=== PATIENT | female | born 1935 | race Caucasian/White ===

== ENCOUNTER 2017-04-11 17:43 | Emergency (ER) | payer OTHER, MEDICARE ==
[~2017-04-11] VITALS: Ht 152.4 cm; Wt 127.3 kg
--- NOTE | ~2017-04-11 | EKG ---
[place] [address] [facility] [place] [address] ELECTROCARDIOGRAM REPORT Name: KOKI GOLDBERG Room #: REG [facility] [id number] Admission: 04/11/17 Attend Phys: Discharge: Date of : 37 Report #: [id number] THIS REPORT FOR: //name// [facility] ED Test Date: 2017-04-11 Test Time: 18:43:09 Pat Name: KOKI GOLDBERG Department: Room: Gender: F Anchor Tacker: [id number] : 1935 Requested By: Bari Amador Order Number: [id number] MD: Mu Ozuna Measurements Intervals [place] Rate: 77 P: 7 OR: 262 QRS: 1 QRSD: 96 T: -1 QT: 373 QTc: 423 Interpretive Statements Sinus rhythm Atrial premature complexes Prolonged OR interval Low voltage, precordial leads Borderline T abnormalities, inferior leads Compared to ECG 12/17/2006 14:47:56 Atrial premature complex(es) now present Low QRS voltage now present T-wave abnormality now present Electronically Signed On 04-11-2017 21:23:30 CDT by Mu Ozuna [email or web address] <ELECTRONICALLY SIGNED> By: Mu Ozuna MD 04/11/172122 42 42 Mu Ozuna MD /EPI
[~2017-04-11 17:43] MED LIST: ACCUPRIL40 MG PO; ARIMIDEX PO; BYSTOLIC10 MG PO; CALCIUM 600 MG1 EAC3 PO; CELEXA 10 MG TA10 M1 PO; COLACE100 MG PO; HUMULIN 70100 UNIT/2 SQ; LASIX 40 MG TAB40 M1 PO; LIPITOR 20 MG T20 M1 PO; OXYCONTIN20 M1 PO; PERCOCET 5-3251 EACH PO; PRILOSEC 20 MG20 MG PO; SYNTHROID125 MCG PO; VERAPAMIL ER240 M1 PO; VITAMIN D 5050000 I1 PO; ZETIA10 MG PO
[2017-04-11] MEDS ORDERED: DULCOLAX5 MG PO (18:46)
[2017-04-11] MEDS ORDERED: AMLODIPINE BESY10 MG PO (18:46)
[2017-04-11 19:07] LABS: URINE BILIRUBIN NEGATIVE (Negative); URINE BLOOD NEGATIVE (Negative); URINE COLOR YELLOW; URINE GLUCOSE-RANDOM* NEGATIVE (Negative); URINE KETONES NEGATIVE (Negative); URINE NITRITE NEGATIVE (Negative); URINE PROTEIN (DIPSTICK) NEGATIVE (Negative); URINE UROBILINOGEN 0.2 E.U./dl (0.2-1.0)
[2017-04-11 19:29] LABS: HEMATOCRIT 29.1 % (37.0-47.0); HEMOGLOBIN 9.9 gm/dL (12.0-15.0); MCV 94.2 fL (80.0-100.0); PLATELET COUNT 221 thou/uL (150-400); RBC 3.09 mil/uL (4.20-5.00); RDW 12.2 % (10.5-14.5); WBC 10.9 thou/uL (4.0-11.0)
[2017-04-11 19:30] LABS: MANUAL DIFF YES
[2017-04-11] MEDS ORDERED: DOK PLUS TABLE1 EACH PO (19:33)
[2017-04-11] MEDS ORDERED: AF CAPSICUM 0.060 GM TOP (19:33)
[2017-04-11] MEDS ORDERED: LISINOPRIL5 MG PO (19:35)
[2017-04-11] MEDS ORDERED: HUMULIN 70100 UNIT/2 SUBQ (19:35)
[2017-04-11] MEDS ORDERED: RANITIDINE 150150 M1 PO (19:37)
[2017-04-11] MEDS ORDERED: DEMADEX20 MG PO (19:37)
[2017-04-11] MEDS ORDERED: MIRALAX17 GM PO (19:39)
[2017-04-11] MEDS ORDERED: POTASSIUM20 PO (19:39)
[2017-04-11] MEDS ORDERED: MAPAP325 MG PO (19:40)
[2017-04-11 19:41] LABS: CALCIUM 8.7 mg/dL (8.5-10.1); POTASSIUM 5.1 mmol/L (3.5-5.1)
[2017-04-11 19:45] LABS: ALBUMIN 2.7 g/dL (3.4-5.0); DIRECT BILIRUBIN 0.2 mg/dL (<0.1-0.3); TOTAL BILIRUBIN 1.2 mg/dL (<0.1-1.0); TOTAL PROTEIN 6.8 g/dL (6.4-8.2)
[2017-04-11 19:47] LABS: ALBUMIN 2.8 g/dL (3.4-5.0); TOTAL BILIRUBIN 1.3 mg/dL (<0.1-1.0); TOTAL PROTEIN 6.2 g/dL (6.4-8.2)
[2017-04-11 19:50] LABS: ABSOLUTE NEUTROPHILS 10.5 thou/uL (1.4-8.2); TOTAL CELL COUNT 100
[2017-04-11] MEDS ORDERED: ZOFRAN ODT8 MG PO (21:13)
[2017-04-11] MEDS ORDERED: PRILOSEC 20 MG20 MG PO (21:13)
[2017-04-11] MEDS ORDERED: TRAMADOL 50 MG50 MG PO (21:13)
== END 2017-04-11 22:28 | disposition home or self-care (01) ==
LOC: ER 17:43
PROVIDERS: Emergency Medicine
DX: S80.11XA Contusion of right lower leg, initial encounter (principal); S40.021A Contusion of right upper arm, initial encounter; R10.9 Unspecified abdominal pain; E11.22 Type 2 diabetes mellitus with diabetic chronic kidney disease; N18.9 Chronic kidney disease, unspecified; Z90.710 Acquired absence of both cervix and uterus; Z90.12 Acquired absence of left breast and nipple; Z88.0 Allergy status to penicillin; Z88.1 Allergy status to other antibiotic agents; Z88.6 Allergy status to analgesic agent; Z91.048 Other nonmedicinal substance allergy status; Z88.8 Allergy status to other drugs, medicaments and biological substances; Z79.4 Long term (current) use of insulin; W18.39XA Other fall on same level, initial encounter; Y93.89 Activity, other specified; Y92.89 Other specified places as the place of occurrence of the external cause; Y99.8 Other external cause status

== ENCOUNTER → 2017-05-29 | Outpatient (CLI) | payer OTHER, MEDICARE ==
[~2017-05-29] MED LIST changes: +AF CAPSICUM 0.060 GM TOP; +AMLODIPINE BESY10 MG PO; +DEMADEX20 MG PO; +DOK PLUS TABLE1 EACH PO; +DULCOLAX5 MG PO; +HUMULIN 70100 UNIT/2 SUBQ; +LISINOPRIL5 MG PO; +MAPAP325 MG PO; +MIRALAX17 GM PO; +POTASSIUM20 PO; +RANITIDINE 150150 M1 PO; +TRAMADOL 50 MG50 MG PO; +ZOFRAN ODT8 MG PO
== END ==
LOC: HYPER 06:42
DX: L03.116 Cellulitis of left lower limb (principal); L03.115 Cellulitis of right lower limb; E11.22 Type 2 diabetes mellitus with diabetic chronic kidney disease; I12.9 Hypertensive chronic kidney disease with stage 1 through stage 4 chronic kidney disease, or unspecified chronic kidney disease; N18.4 Chronic kidney disease, stage 4 (severe); E11.29 Type 2 diabetes mellitus with other diabetic kidney complication; M94.0 Chondrocostal junction syndrome [Tietze]; E11.319 Type 2 diabetes mellitus with unspecified diabetic retinopathy without macular edema; M51.36 Other intervertebral disc degeneration, lumbar region; K21.0 Gastro-esophageal reflux disease with esophagitis; K64.9 Unspecified hemorrhoids; E03.9 Hypothyroidism, unspecified; M46.46 Discitis, unspecified, lumbar region; E66.01 Morbid (severe) obesity due to excess calories; M81.0 Age-related osteoporosis without current pathological fracture; N39.3 Stress incontinence (female) (male); E55.9 Vitamin D deficiency, unspecified; Z68.38 Body mass index [BMI] 38.0-38.9, adult; Z86.73 Personal history of transient ischemic attack (TIA), and cerebral infarction without residual deficits; Z85.3 Personal history of malignant neoplasm of breast; M06.9 Rheumatoid arthritis, unspecified; F32.9 Major depressive disorder, single episode, unspecified; Z72.89 Other problems related to lifestyle

== ENCOUNTER → 2018-10-26 | Outpatient (CLI) | payer OTHER, MEDICARE ==
[~2018-10-26] VITALS: Ht 152.4 cm; Wt 126.1 kg
[~2018-10-26] MED LIST changes: +KLOR-CON 1010 MEQ PO; +LISINOPRIL10 MG PO; +ONDANSETRON HCL4 M2 PO; +SYNTHROID125 MC1 PO; -SYNTHROID125 MCG PO
--- NOTE | ~2018-10-26 | P ---
[facility] [place] [place] [address] PROCEDURE REPORT Name: ASHLYNKOKI COURTNEY Room #: REG [facility] [id number] Admission: 10/26/18 ������������������ Attend Phys: Aldo Nielsen Discharge: ������������������ Date of : 36 Report #: [id number] THIS REPORT FOR: //name// CC: Rashi Richardson DATE OF SERVICE: 10/26/2018 PROCEDURE PERFORMED: Upper endoscopy with biopsies and esophageal dilation. HISTORY OF PRESENT ILLNESS: The patient is an 83-year-old female who was seen by myself in the office on 10/20/2017 for a history of chronic anemia and recent Hemoccult positive stools. She does report a small amount of bright red blood per rectum that she attributes to a possible hemorrhoid. Last colonoscopy was greater than 10 years ago. She has a history of gastroesophageal reflux disease, takes Zantac b.i.d. She does report intermittent dysphagia at times. She denies any NSAIDs in general. Her most recent hemoglobin was 9.9 on 10/02/2018. No family history of colon cancer or inflammatory bowel disease. 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 Plan is for EGD and colonoscopy today. DESCRIPTION OF PROCEDURE: The risks and benefits of the procedure were explained to the patient, those risks including but not limited to bleeding, perforation, the risk of sedation. She understood these risks and gave informed consent. Sedation was given using propofol per anesthesia. Next, using a standard Olympus upper endoscope, the scope was placed in the patient's mouth and advanced under direct vision through the esophagus, stomach and into the second portion of the duodenum. The larynx was normal in appearance. The esophagus was normal throughout. The GE junction was normal. No evidence of stricture or esophagitis. In the stomach there was obvious surgical changes. It appears approximately half of her stomach has been resected. There was a mild gastritis in the [place] stomach. Biopsies were obtained. The tissue was friable. There was no active bleeding; however, just with passing the scope there was a small amount of blood noted. At the surgical anastomosis, there was a somewhat nodular gastritis noted. Multiple biopsies were obtained. The scope was advanced through the anastomosis without difficulty into the first and second portion of the duodenum, which was normal. Biopsies were obtained of the second portion of the duodenum to rule out celiac sprue. At this point, the scope was then withdrawn and a 48-[place] Ingram dilation of the esophagus was performed without difficulty. The dilator was removed. The scope was reintroduced into the patient's stomach. There was no evidence of mucosal tear of the esophagus after dilation. The scope was then withdrawn and the procedure terminated. The patient tolerated the procedure well. IMPRESSION: Surgical changes noted consistent with previous partial gastrectomy, gastritis in the [place] stomach, nodular appearing gastritis at the [facility] [address] [place] [address] PROCEDURE REPORT Name: ASHLYNKOKI COURTNEY Room #: REG CLDc Wilhelm#: [id number] Admission: 10/26/18 ������������������ Attend Phys: Aldo Nielsen Discharge: ������������������ Date of : 36 Report #: [id number] anastomosis. Biopsies obtained in both areas. No active bleeding, but again, the tissue was friable, which could cause heme positive stools and anemia. RECOMMENDATIONS: 1. Await biopsy results. 2. Observe the patient post-dilation. 3. Would consider PPI therapy as well as Carafate. ADDENDUM RECOMMENDATIONS: 1. Would recommend discontinuing Zantac b.i.d. and starting PPI therapy with Carafate due to the patient's gastritis as this may be the cause of her anemia and heme-positive stools. 2. Observe the patient post-dilation. 3. We will proceed with colonoscopy next today. ��������������������������������������������� ���������������������������������������� By: ��������������������������������������������� 0849 0117 Adlo Richardson MD /nt
--- NOTE | 2018-10-27 11:09 | P ---
[facility] [place] [place] [address] PROCEDURE REPORT Name: KOKI GOLDBERG Room #: REG [facility]#: [id number] Admission: 10/26/18 ������������������ Attend Phys: Aldo Nielsen Discharge: ������������������ Date of : 36 Report #: [id number] THIS REPORT FOR: //name// CC: Rashi Richardson DATE OF SERVICE: 10/26/2018 PROCEDURE PERFORMED: Colonoscopy with biopsies. HISTORY OF PRESENT ILLNESS: The patient is an 83-year-old female seen in the office recently for chronic anemia and heme-positive stools. Upper endoscopy was just performed showing gastritis with friable mucosa. Last colonoscopy was greater than 10 years ago. No family history of colon cancer or inflammatory bowel disease. The patient has a history of hemorrhoids reportedly. DESCRIPTION OF PROCEDURE: The risks and benefits of the procedure were explained to the patient, those risks including but not limited to bleeding, perforation and the risk of sedation. She understood these risks and gave informed consent. Sedation was given using propofol per anesthesia. Next, a digital rectal exam showed large external hemorrhoids, one partially thrombosed in appearance, otherwise normal. Next, using a standard Olympus colonoscope, the scope was placed in the patient's anus and advanced under direct vision to the cecum. The overall prep was good. In the cecum, there was a 3-mm sessile polyp. This was removed with cold forceps, otherwise normal. The ileocecal valve was normal. The terminal ileum was intubated and normal in appearance. The ascending, transverse, descending and sigmoid colon were all normal. The rectal mucosa was normal. On retroflexion, a small internal hemorrhoid was noted. Close examination of the anal canal again showed large external hemorrhoids, one of which is partially thrombosed in appearance. There is no evidence of bleeding or stigmata of recent bleeding. At this point, the scope was then withdrawn and the procedure terminated. The patient tolerated the procedure well. IMPRESSION: 1. Small cecal polyp. 2. Small internal hemorrhoids. 3. Large external hemorrhoids, likely source of recent bright red blood per rectum as well as possible source of heme positive stools. Doubt this would cause an anemia unless she is having bleeding on a regular basis, which she is not reporting. Hemorrhoids are large enough to consider surgical options potentially. No repeat colonoscopy needed due to the patient's age. [address] [address] PROCEDURE REPORT Name: ASHLYNJYOTSNA Room #: REG BAM Wilhelm#: [id number] Admission: 10/26/18 ������������������ Attend Phys: Aldo Nielsen Discharge: ������������������ Date of : 37 Report #: [id number] Thank you for allowing me to participate in her care. ��������������������������������������������� <ELECTRONICALLY SIGNED> ���������������������������������������� By: Aldo Richardson MD ��������������������������������������������� 10/27/18 1109 0919 2229 Aldo Richardson MD /kevin
--- NOTE | 2018-10-27 15:06 | PATH ---
[facility] [address] [place] [address] PATHOLOGY RPT PROCEDURE Name: CONNIE GOLDBERG Room #: REG BAM Yaw.#: [id number] ������������������ Admission: 10/26/18 ������������������ Date of : 36 Discharge: Report #: [id number] Path Case #: [id number] [facility] Accession Number: [id number] . 01 Material submitted: . PART A: duodenum - BX DUODENUM R/O CELIAC SPRUE PART B: gastrointestinal site - BX GASTRITIS AT SURGICAL ANASTOMOSIS PART C: gastrointestinal site - BX GASTRITIS R/O H. PYLORI PART D: cecum - BX POLYP AT CECUM . 01 Clinical history: . Pre-OP DX: Anemia, blood in stool Post-OP DX: Gastritis, colon polyp, hemorrhoids . 02 Diagnosis: A. Small bowel mucosa, duodenum, rule out celiac sprue, endoscopic biopsy: - No diagnostic abnormalities present. - Negative for villous blunting or increase in intraepithelial lymphocytes. . B. Gastric mucosa, gastritis at surgical anastomosis rule out H. pylori, endoscopic biopsy: - Moderate to marked reactive gastropathy, surgical anastomosis site. - Focal ulceration identified consistent with the anastomosis site. - Negative for intestinal metaplasia or atrophy. - Negative for Helicobacter pylori (properly controlled immunohistochemical stain performed). . C. Gastric mucosa, gastritis rule out H. pylori, endoscopic biopsy: - Moderate reactive gastropathy with active gastritis. - Negative for intestinal metaplasia or atrophy. - Negative for Helicobacter pylori (properly controlled immunohistochemical stain performed). . D. Polyp, at cecum, endoscopic biopsy: - Inflamed hyperplastic polyp. - Negative for dysplasia. . 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 02 Electronically signed: . Cyndi Jnug MD, Pathologist NPI- [id number] . 01 Gross description: . [address] [address] PATHOLOGY RPT PROCEDURE Name: CONNIE GOLDBERG Room #: REG CLI [facility].#: [id number] ������������������ Admission: 10/26/18 ������������������ Date of : 36 Discharge: Report #: [id number] Path Case #: [id number] A. Received in formalin labeled "Connie Goldberg, BX duodenum, rule out celiac sprue," are 3 segments of [place] soft tissue measuring 1.0 x 0.7 x 0.3 cm in aggregate dimensions and ranging from 0.3 to 0.5 cm in maximum dimension. The specimen is submitted entirely in cassette A1. . B. Received in formalin labeled "Connie Goldberg, BX gastritis at surgical anastomosis, rule out H. pylori," are multiple segments of [place] soft tissue measuring 0.9 x 0.6 x 0.2 cm in aggregate dimensions. The specimen is filtered and entirely submitted in cassette B1. . C. Received in formalin labeled "Connie Goldberg, BX gastritis, rule out H. pylori," are 3 segments of [place] soft tissue measuring 1.0 x 0.7 x 0.2 cm in aggregate dimensions and ranging from 0.2 to 0.6 cm in maximum dimension. The specimen is submitted entirely in cassette C1. . D. Received in formalin labeled "Connie Goldberg, BX polyp at cecum," are 2 segments of [place] soft tissue measuring 0.7 x 0.3 x 0.2 cm in aggregate dimensions and ranging from 0.3 to 0.4 cm in maximum dimension. The specimen is submitted entirely in cassette D1. (TSD; 10/26/2018) TOB/TOB . 02 Pathologist provided ICD-10: K31.9, K29.00, K25.9, K63.5 . 02 CPT . 487773, 252467, 950393, 477626, R52895 Specimen Comment: A courtesy copy of this report has been sent to Specimen Comment: [phone], . Specimen Comment: Report sent to / DR JERRY Performed at: [address], [place], [place] [id number] MD Hank Truong MD Phone: [phone] Performed at: [address] [id number] MD Cyndi Jung MD Phone: [phone]
== END | disposition home or self-care (01) ==
LOC: GI 06:56
DX: K63.5 Polyp of colon (principal); K64.8 Other hemorrhoids; K64.4 Residual hemorrhoidal skin tags; K29.00 Acute gastritis without bleeding; K31.9 Disease of stomach and duodenum, unspecified; K21.9 Gastro-esophageal reflux disease without esophagitis; I12.9 Hypertensive chronic kidney disease with stage 1 through stage 4 chronic kidney disease, or unspecified chronic kidney disease; E11.22 Type 2 diabetes mellitus with diabetic chronic kidney disease; N18.9 Chronic kidney disease, unspecified; M19.90 Unspecified osteoarthritis, unspecified site; E78.00 Pure hypercholesterolemia, unspecified; Z90.3 Acquired absence of stomach [part of]; Z91.040 Latex allergy status; Z79.4 Long term (current) use of insulin; Z85.3 Personal history of malignant neoplasm of breast; Z90.49 Acquired absence of other specified parts of digestive tract; Z90.710 Acquired absence of both cervix and uterus; Z98.890 Other specified postprocedural states; Z98.41 Cataract extraction status, right eye; Z98.42 Cataract extraction status, left eye; Z79.899 Other long term (current) drug therapy
CPT/HCPCS: 62110; 62900

== ENCOUNTER → 2018-11-09 | Outpatient (CLI) | payer OTHER, MEDICARE ==
[2018-11-09 09:17] LABS: CREATININE 2.1 mg/dL (0.6-1.0)
== END ==
LOC: CAT 08:16
PROVIDERS: Specialist
DX: K86.2 Cyst of pancreas (principal); K42.9 Umbilical hernia without obstruction or gangrene; I25.10 Atherosclerotic heart disease of native coronary artery without angina pectoris; I70.0 Atherosclerosis of aorta; Z90.49 Acquired absence of other specified parts of digestive tract

== ENCOUNTER 2019-10-13 10:08 | Inpatient (IN) | payer OTHER, MEDICARE ==
[~2019-10-13] VITALS: Ht 152.4 cm; Wt 129.3 kg
[2019-10-13 10:28] VITALS: BP 151/64
[2019-10-13] MEDS ORDERED: FEROSUL325 M1 PO (10:44)
[2019-10-13] MEDS ORDERED: OMEPRAZOLE 20 M20 M1 PO (10:44)
[2019-10-13] MEDS ORDERED: CARAFATE1 GM PO (10:46)
[2019-10-13 11:53] LABS: BASOPHILS 0.3 % (0.0-2.0); EOSINOPHILS 1.6 % (0.0-3.0); HEMATOCRIT 30.6 % (37.0-47.0); HEMOGLOBIN 10.2 gm/dL (12.0-15.0); LYMPHOCYTES 16.6 % (24.0-44.0); MCH 31.2 pg (26.0-34.0); MCHC 33.3 g/dL (28.0-37.0); MCV 93.6 fL (80.0-100.0); MONOCYTES 4.9 % (1.0-8.0); PLATELET COUNT 194 thou/uL (150-400); POLYS 76.6 % (36.0-66.0); RBC 3.27 mil/uL (4.20-5.00); RDW 12.6 % (10.5-14.5); WBC 7.9 thou/uL (4.0-11.0)
[2019-10-13 12:03] LABS: ANION GAP 7 mmol/L (7-16); BUN 56 mg/dL (7-18); CALCIUM 9.5 mg/dL (8.5-10.1); CHLORIDE 103 mmol/L (98-107); CO2 28 mmol/L (21-32); CREATININE 2.1 mg/dL (0.6-1.0); GLUCOSE 122 mg/dL (74-106); POTASSIUM 5.2 mmol/L (3.5-5.1); SODIUM 138 mmol/L (136-145)
[2019-10-13 12:09] LABS: ALBUMIN 3.1 g/dL (3.4-5.0); DIRECT BILIRUBIN < 0.1 mg/dL (<0.1-0.2); SGOT 15 U/L (15-37); SGPT 13 U/L (30-65); TOTAL BILIRUBIN 0.5 mg/dL (<0.1-1.0); TOTAL PROTEIN 7.3 g/dL (6.4-8.2)
[2019-10-13 14:06] VITALS: BP 143/51
[2019-10-13 14:49] VITALS: BP 151/49
[2019-10-13 15:00] VITALS: BP 144/59
[2019-10-13 15:20] LABS: TSH 4.074 uIU/mL (0.358-3.740)
[2019-10-13 20:00] VITALS: BP 128/57
[2019-10-14 07:09] LABS: ABSOLUTE NEUTROPHILS 4.3 thou/uL (1.4-8.2); BASOPHILS 0.3 % (0.0-2.0); EOSINOPHILS 4.2 % (0.0-3.0); HEMATOCRIT 29.9 % (37.0-47.0); HEMOGLOBIN 9.8 gm/dL (12.0-15.0); LYMPHOCYTES 31.2 % (24.0-44.0); MCH 30.8 pg (26.0-34.0); MCHC 32.8 g/dL (28.0-37.0); PLATELET COUNT 184 thou/uL (150-400); POLYS 56.3 % (36.0-66.0); RBC 3.18 mil/uL (4.20-5.00); WBC 7.7 thou/uL (4.0-11.0)
[2019-10-14 07:24] LABS: CALCIUM 9.1 mg/dL (8.5-10.1); MAGNESIUM 2.1 mg/dL (1.8-2.4); POTASSIUM 5.4 mmol/L (3.5-5.1)
[2019-10-14 07:36] VITALS: BP 148/67
--- NOTE | 2019-10-14 09:33 | EKG ---
[facility] [address] [place] [address] ELECTROCARDIOGRAM REPORT Name: KOKI GOLDBERG Room #: 360-P ADM IN M.R.#: [id number] Admission: 10/13/19 Attend Phys: Kvng Guillermo MD Discharge: Date of : 36 Report #: [id number] THIS REPORT FOR: cc: FAM - Family physician unknown FAM - Family physician unknown Len Montes MD [facility] THIS REPORT FOR: //name// [facility] ED Test Date: 2019-10-13 Test Time: 10:48:31 Pat Name: KOKI GOLDBERG Department: Room: 360 P Gender: F Anaesthesiologist: esheets : 1935 Requested By: Rupinder Villanueva Order Number: [id number] MD: Len Montes Measurements Intervals [place] Rate: 74 P: 32 GA: 261 QRS: 4 QRSD: 100 T: 4 QT: 390 QTc: 433 Interpretive Statements Sinus rhythm Atrial premature complex Prolonged [place] interval Compared to ECG 04/11/2017 18:43:09 T-wave abnormality no longer present Electronically Signed On 10-14-2019 9:31:51 CDT by Len Montes [email or web address] <ELECTRONICALLY SIGNED> By: Len Montes MD, [facility] 10/14/19 0931 1048 1048 Len Montes MD, [facility] /EPI
[2019-10-14 15:24] VITALS: BP 128/64
[2019-10-14 16:13] VITALS: BP 147/40
[2019-10-14 19:13] VITALS: BP 143/49
[2019-10-15 04:06] VITALS: BP 142/47
[2019-10-15 05:05] LABS: CALCIUM 8.4 mg/dL (8.5-10.1); CREATININE 2.3 mg/dL (0.6-1.0); POTASSIUM 4.9 mmol/L (3.5-5.1)
[2019-10-15 07:11] VITALS: BP 133/47
--- NOTE | 2019-10-15 08:15 | HC ---
[facility] [place] [address] CONSULTATION Name: KOKI GOLDBERG Room #: 437- ADM IN M.R.#: [id number] Admission: 10/13/19 Attend Phys: Kvng Guillermo MD Discharge: Date of : 36 Report #: [id number] THIS REPORT FOR: cc: URIEL - Family physician unknown URIEL - Family physician unknown Jone Montalvo MD ~ CC: Kvng TREVINO unknown DATE OF SERVICE: 10/14/2019 CHIEF COMPLAINT: Bilateral lower extremity edema. HISTORY OF PRESENT ILLNESS: This is an 84-year-old female patient with a history of diabetes mellitus, hyperlipidemia and lymphedema who presented with some generalized weakness and increasing swelling and redness to her lower extremities. She has been on Keflex without much relief. She has mild shortness of breath. Denies fever or chills presently. PAST MEDICAL HISTORY: Positive for diabetes and chronic kidney disease, arthritis, hypertension, high cholesterol, GERD, history of MRSA infection, previous appendectomy and cholecystectomy and gastric resection. She has a history of obstructive sleep apnea. MEDICATIONS: Include ferrous sulfate, omeprazole, sucralfate, insulin, Synthroid, docusate sodium, citalopram, oxycodone, atorvastatin, amlodipine, torsemide, potassium, lisinopril, ondansetron. ALLERGIES: INCLUDE TETRACYCLINE, ADHESIVE TAPE, IBUPROFEN, PENICILLIN, BETADINE, SULFA, TRIMETHOPRIM. REVIEW OF SYSTEMS: CONSTITUTIONAL: The patient denies fever, chills or weight loss. NEUROLOGICAL: The patient denies focal weakness, numbness or tingling. EYES: The patient denies any visual changes, redness or drainage. ENT: The patient denies earache, nasal drainage or sore throat. CARDIOVASCULAR: The patient denies chest pain, palpitations or diaphoresis. PULMONARY: The patient denies cough or shortness of breath. GASTROINTESTINAL: The patient denies nausea, vomiting, diarrhea. ORTHOPEDIC: The patient complains of some pain, swelling and pruritus to both lower extremities, right greater than left. Other systems in a 14-point review of systems are negative. PHYSICAL EXAMINATION: VITAL SIGNS: Include temperature 37.0, pulse 66, respiratory rate 20, blood pressure 120/64. [facility] [address] [place] [address] CONSULTATION Name: KOKI GOLDBERG Room #: 437-P [facility] IN ..#: [id number] Admission: 10/13/19 Attend Phys: Kvng Guillermo MD Discharge: Date of : 36 Report #: [id number] GENERAL: This is a chronically ill-appearing female patient who appears to be in minimal distress. HEENT: Head normocephalic. Nose and throat are clear. NECK: Supple. LUNGS: Clear. HEART: Regular rate and rhythm. ABDOMEN: Soft, bowel sounds present. EXTREMITIES: Lower extremities demonstrate 3+ edema bilaterally. There is moderate pretibial erythema on both legs, more so on the right than on the left with some warmth and tenderness on the right compared to the left, distal pulses are diminished, but palpable. NEUROLOGIC: The patient is alert and oriented and appropriate. LABORATORY DATA: Include white blood cell count 7.7 with hemoglobin 9.8. Sodium 140, potassium 5.4, chloride 104, CO2 of 30, BUN 52, creatinine 2.0, glucose 131. Albumin is 3.1. CLINICAL IMPRESSION: 1. Lymphedema, bilateral lower extremities. 2. Cellulitis, left lower extremity. 3. Generalized weakness and has chronic kidney disease. 4. Diabetes mellitus. RECOMMENDATIONS: At this point in time, we will recommend topical triamcinolone cream to both lower extremities. Recommend compression with Kerlix and Chepe wrap. We will ask occupational therapy to see her for lymphedema therapy and compression bandaging. We will recommend elevation of the lower extremities. Nutrition to maximize wound healing and maintain glycemic control. I appreciate being asked to see the patient in consultation. <ELECTRONICALLY SIGNED> By: Jone Montalvo MD 10/15/19 0815 1540 1609 Jone Montalvo MD /nt
--- NOTE | 2019-10-15 08:24 | HC ---
[facility] [address] [place] [address] CONSULTATION Name: KOKI GOLDBERG Room #: 437-P ADM IN M.R.#: [id number] Admission: 10/13/19 Attend Phys: Kvng Guillermo MD Discharge: Date of : 36 Report #: [id number] THIS REPORT FOR: cc: URIEL - Family physician unknown URIEL - Family physician unknown Amaya Jacques MD ~ CC: Kvng TREVINO unknown REASON FOR PRESENTATION: Feeling weak and lower extremity swelling. REASON FOR CONSULTATION: Chronic kidney disease. HISTORY OF PRESENT ILLNESS: This is an 84-year-old with past medical history of diabetes mellitus, morbid obesity, hypertension, chronic kidney disease, who sees Dr. Pineda in my clinic. Her baseline creatinine is anywhere from 1.6 to 2.0. She suffers from chronic lymphedema and has been treated for that on numerous occasions. She presented from her nursing facility because of progressive weakness. She also reported to bilateral lower extremity swelling. She was found to have a creatinine value of 2.1 on her presentation. She was admitted to be ruled out for COVID-19 infection. I am being consulted to manage her chronic kidney disease. I had thoroughly reviewed her medical records in our clinic. She has carried this diagnosis since 2015. Her creatinine has been in the 2 range. She is maintained on torsemide. ALLERGIES: PENICILLIN, IBUPROFEN, TETRACYCLINE. MEDICATIONS: 1. Insulin. 2. Levothyroxine. 3. Torsemide. 4. Lisinopril. SOCIAL HISTORY: Resides in an assisted living facility. PAST MEDICAL AND SURGICAL HISTORY: 1. CKD with a baseline creatinine of around 2.0. 2. Gastric resection. 3. Cholecystectomy. 4. Appendectomy. 5. Mastectomy. 6. Hypertension. 7. Diabetes mellitus. 8. Obstructive sleep apnea. 9. Repeated lower extremity infections and cellulitis. 10. Lymphedema. [facility] [address] [place] [address] CONSULTATION Name: KOKI GOLDBERG Room #: 437-P [facility] IN .R.#: [id number] Admission: 10/13/19 Attend Phys: Kvng Guillermo MD Discharge: Date of : 36 Report #: [id number] REVIEW OF SYSTEMS: GENERAL: Significant for weakness. CARDIOVASCULAR: No chest pain or palpitation. PULMONARY: No cough or hemoptysis. GASTROINTESTINAL: No nausea or vomiting. GENITOURINARY: No frequency, no urgency. MUSCULOSKELETAL: Chronic lymphedema in bilateral legs, weakness. PHYSICAL EXAMINATION: GENERAL: She is alert, oriented, in no apparent distress. VITAL SIGNS: Blood pressure is 143/67, temperature is 37.1, pulse rate is 69. HEAD AND NECK: No jugular venous distention, no bruit, no thyromegaly. CHEST: Decreased air entry bilaterally. CARDIOVASCULAR: No rub detected. ABDOMEN: Soft, nontender. LOWER EXTREMITIES: Chronic lymphedema changes. LABORATORY VALUES: Reviewed. Sodium is 140, potassium is 5.4, BUN is 52, creatinine is 2.0. Chest x-ray: Mild pulmonary venous congestions. ASSESSMENT, IMPRESSION, AND PLAN: 1. Chronic kidney disease. 2. Diabetes mellitus. 3. Morbid obesity. 4. Hypertension. 5. Chronic lymphedema. 6. The patient is at her baseline from the renal perspective, I will resume a low dose torsemide. Most of her swelling and edema are related to lymphedema rather than pure edema. This could be managed locally. 7. She is being ruled out for COVID-19 infection. 8. Continue her usual home blood pressure medications and blood sugar medications. 9. No further renal recommendations. I will sign off. She could follow up with our kidney clinic. <ELECTRONICALLY SIGNED> By: Amaya Jacques MD 10/15/19 0824 0811 0945 Amaya Jacques MD /nt
--- NOTE | 2019-10-15 08:25 | 2DMMODE ---
[facility] [place] [address] 2 D/M-MODE ECHOCARDIOGRAM Name: KOKI GOLDBERG Room #: 437-P ADM IN M.R.#: [id number] Admission: 10/13/19 Attend Phys: Kvng Guillermo MD Discharge: Date of : 37 Report #: [id number] THIS REPORT FOR: cc: FAM - Family physician unknown FAM - Family physician unknown Len Montes MD [facility] ~ APPROVED REPORT Study performed: 10/15/2019 07:22:54 EXAM: Comprehensive 2D, Doppler, and color-flow Echocardiogram Patient Location: Bedside Room #: 437 Status: routine BSA: 2.17 HR: 66 bpm BP: 142/47 mmHg Rhythm: ARRHYTHMIA/SINUS Other Information Study Quality: Adequate/unable to roll Indications Elevated BNP. Hx: DM, HTN, HLP, morbid obesity. 2D Dimensions RVDd: 37.81 mm IVSd: 10.22 (7-11mm) LVOT Diam: 20.34 (18-24mm) LVDd: 47.30 mm PWd: 10.27 (7-11mm) LVDs: 33.72 (25-40mm) Aortic Root: 30.24 mm Volumes Left Atrial Volume (Systole) Single Plane 4CH: 40.17 mL Single Plane 2CH: 52.99 mL LA ESV Index: 24.00 mL/m2 Aortic Valve AoV Peak Mukesh.: 1.50 m/s AO Peak Gr.: 9.00 mmHg LVOT Max P.07 mmHg LVOT Max V: 1.13 m/s LINDA Vmax: 2.44 cm2 [facility] [address] [place] [address] 2 D/M-MODE ECHOCARDIOGRAM Name: ASHLYNKOKI COURTNEY Room #: 437-P [facility] IN [facility]#: [id number] Admission: 10/13/19 Attend Phys: Kvng Guillermo MD Discharge: Date of : 37 Report #: [id number] Mitral Valve E/A Ratio: 1.3 MV Decel. Time: 226.10 ms MV E Max Mukesh.: 0.85 m/s MV A Mukesh.: 0.65 m/s MV PHT: 65.57 ms IVRT: 44.98 ms Pulmonary Valve PV Peak Mukesh.: 1.16 m/s PV Peak Gr.: 5.41 mmHg Pulmonary Vein P Vein S: 0.66 m/s P Vein A: 0.33 m/s P Vein D: 0.45 m/s P Vein A Dur.: 186.9 msec P Vein S/D Ratio: 1.47 Tricuspid Valve TR Peak Mukesh.: 1.85 m/s RAP Estimate: 10.00 mmHg TR Peak Gr.: 14.00 mmHg PA Pressure: 24.00 mmHg Left Ventricle The left ventricle is normal size. There is normal LV segmental wall motion. There is normal left ventricular wall thickness. Left ventricular systolic function is normal. LVEF is 55-60%. The left ventricular diastolic function is normal. Right Ventricle The right ventricle is normal size. The right ventricular systolic function is normal. Atria The left atrium size is normal. The right atrium size is normal. Aortic Valve Aortic valve is mildly calcified. No aortic regurgitation is present. There is no aortic valvular stenosis. Mitral Valve The mitral valve is normal in structure. Trace mitral regurgitation. No evidence of mitral valve stenosis. Tricuspid Valve The tricuspid valve is normal in structure. Trace tricuspid [facility] [address] [place] [address] 2 D/M-MODE ECHOCARDIOGRAM Name: KOKI GOLDBERG Room #: 437-P ADM IN M.R.#: [id number] Admission: 10/13/19 Attend Phys: Kvng Guillermo MD Discharge: Date of : 37 Report #: [id number] regurgitation. Estimated PAP is 25mmHg. Pulmonic Valve Pulmonic valve is not well visualized. Great Vessels The aortic root is normal in size. Ascending aorta is not well visualized. IVC is dilated and partially collapses with inspiration. Pericardium There is no pericardial effusion. <Conclusion> Left ventricular systolic function is normal. There is normal LV segmental wall motion. LVEF is 55-60%. Normal diastolic function Aortic valve is mildly calcified. No aortic regurgitation or stenosis. The mitral valve is normal in structure. Trace mitral regurgitation. Trace tricuspid regurgitation. Estimated pulmonary artery pressure of 25mmHg. There is no pericardial effusion. <ELECTRONICALLY SIGNED> By: Len Montes MD, FACC 10/15/19822 2 2 Len Montes MD, FAC /INF
[2019-10-15 14:37] VITALS: BP 133/47
== END 2019-10-15 16:43 | disposition home health service (06) | DRG 603 ==
LOC: ER 10:08 → 3W 13:50 → EROBS 13:50 → 3W 15:26 → 4S 10-14 16:09
PROVIDERS: Emergency Medicine; Nurse Practitioner; ADMIT Hospitalist
DX: L03.115 Cellulitis of right lower limb (principal); E44.1 Mild protein-calorie malnutrition; Z68.43 Body mass index [BMI] 50.0-59.9, adult; N18.9 Chronic kidney disease, unspecified; E66.01 Morbid (severe) obesity due to excess calories; R53.81 Other malaise; E11.22 Type 2 diabetes mellitus with diabetic chronic kidney disease; I12.9 Hypertensive chronic kidney disease with stage 1 through stage 4 chronic kidney disease, or unspecified chronic kidney disease; M19.90 Unspecified osteoarthritis, unspecified site; E78.00 Pure hypercholesterolemia, unspecified; K21.9 Gastro-esophageal reflux disease without esophagitis; E78.5 Hyperlipidemia, unspecified; I89.0 Lymphedema, not elsewhere classified; M54.9 Dorsalgia, unspecified; G89.29 Other chronic pain; F11.90 Opioid use, unspecified, uncomplicated; E87.5 Hyperkalemia; E03.9 Hypothyroidism, unspecified; Z03.818 Encounter for observation for suspected exposure to other biological agents ruled out; Z90.3 Acquired absence of stomach [part of]; Z90.49 Acquired absence of other specified parts of digestive tract; Z90.89 Acquired absence of other organs; Z90.710 Acquired absence of both cervix and uterus; Z90.12 Acquired absence of left breast and nipple; Z98.1 Arthrodesis status; Z79.899 Other long term (current) drug therapy; Z88.0 Allergy status to penicillin; Z88.2 Allergy status to sulfonamides; Z88.8 Allergy status to other drugs, medicaments and biological substances; Z88.1 Allergy status to other antibiotic agents; Z91.041 Radiographic dye allergy status
CPT/HCPCS: 10100; 10195; 10779; 10879

== ENCOUNTER → 2020-05-11 | Outpatient (CLI) | payer OTHER, MEDICARE ==
[~2020-05-11] MED LIST changes: +CARAFATE1 GM PO; +FEROSUL325 M1 PO; +OMEPRAZOLE 20 M20 M1 PO
== END ==
LOC: HYPER 13:19
PROVIDERS: ATTEND Emergency Medicine
DX: L30.9 Dermatitis, unspecified (principal); I87.2 Venous insufficiency (chronic) (peripheral); E11.628 Type 2 diabetes mellitus with other skin complications; M48.00 Spinal stenosis, site unspecified; M81.0 Age-related osteoporosis without current pathological fracture; M51.36 Other intervertebral disc degeneration, lumbar region; E11.319 Type 2 diabetes mellitus with unspecified diabetic retinopathy without macular edema; C50.919 Malignant neoplasm of unspecified site of unspecified female breast; E11.22 Type 2 diabetes mellitus with diabetic chronic kidney disease; N18.4 Chronic kidney disease, stage 4 (severe); M06.9 Rheumatoid arthritis, unspecified; E66.01 Morbid (severe) obesity due to excess calories; F33.9 Major depressive disorder, recurrent, unspecified; Z79.4 Long term (current) use of insulin; Z68.43 Body mass index [BMI] 50.0-59.9, adult; Z90.49 Acquired absence of other specified parts of digestive tract; Z98.49 Cataract extraction status, unspecified eye

== ENCOUNTER → 2020-06-01 | Outpatient (CLI) | payer OTHER, MEDICARE | LOC: HYPER 13:23 | PROVIDERS: ATTEND Emergency Medicine | DX: E11.628 Type 2 diabetes mellitus with other skin complications (principal); L30.9 Dermatitis, unspecified; I87.2 Venous insufficiency (chronic) (peripheral); E11.22 Type 2 diabetes mellitus with diabetic chronic kidney disease; I12.9 Hypertensive chronic kidney disease with stage 1 through stage 4 chronic kidney disease, or unspecified chronic kidney disease; N18.4 Chronic kidney disease, stage 4 (severe); M48.00 Spinal stenosis, site unspecified; M81.0 Age-related osteoporosis without current pathological fracture; M51.36 Other intervertebral disc degeneration, lumbar region; E11.319 Type 2 diabetes mellitus with unspecified diabetic retinopathy without macular edema; C50.919 Malignant neoplasm of unspecified site of unspecified female breast; E66.01 Morbid (severe) obesity due to excess calories; M06.9 Rheumatoid arthritis, unspecified; F33.9 Major depressive disorder, recurrent, unspecified; Z68.43 Body mass index [BMI] 50.0-59.9, adult; Z79.4 Long term (current) use of insulin; Z79.01 Long term (current) use of anticoagulants ==

== ENCOUNTER 2021-02-08 15:47 | Emergency (ER) | payer OTHER, MEDICARE ==
[~2021-02-08] VITALS: Ht 152.4 cm; Wt 135.2 kg
--- NOTE | ~2021-02-08 | EMS ---
[facility] [address] [place] [address] EMS Patient Care Report Name: KOKI GOLDBERG Room #: DEP ILENE Wilhelm#: [id number] Admission: 02/08/21 Attend Phys: Discharge: 02/08/21 Date of : 37 Report #: [id number] THIS REPORT FOR: //name// Report Transmitted: 02/10/2021 13:13 EMS Care Summary [place], [place]/[facility] Incident [id number] @ 02/08/2021 15:24 Incident Location [address] [place] [address] Patient KOKI GOLDBERG Female, 85 Years 1935 Patient Address [address] [place] [address] Patient History Congestive Heart Failure (CHF),Diabetes,Hypertension (HTN),Breast Cancer,Chronic Kidney Disease, Patient Allergies Tetracycline, Patient Medications Other, Chief Complaint FALL Disposition Transported No Lights/[place] Dispatch Reason Falls Transported To [facility] Narrative M528 WAS DISPATCHED TO LOCAL DIALYSIS CLIN[facility] PARKING LOT FOR 84 Y/O FEMALE PT W/ CHIEF COMPLAINT OF A FALL. UPON ARRIVAL [employer]MP[employer] CREW HAS PT SAT ON BUMBER OF HER CAR. PT STATES SHE WAS FEELING WEEK IN HER LOWER EXTREMETIES WHICH IS WHAT CAUSED HER TO FALL. PT IS AOX4, GCS 15, W/ NO OBVIOUS LIFE THREATS AT THIS [facility] [address] [place] [address] EMS Patient Care Report Name: KOKI GOLDBERG Room #: DEP [facility]#: [id number] Admission: 02/08/21 Attend Phys: Discharge: 02/08/21 Date of : 37 Report #: [id number] TIME. PT DENIES LOC, PT DENIES HITTING HER HEAD, PT DENIES FEELING ANY SORT OF INJURIES AT THIS TIME. PT IS MOVED ONTO STRETCHER AND LOADED INTO M528. FULL SET OF VITALS ARE TAKEN AND 28 BEGINS TRANSPORT TO [facility]. UPON REASSESSMENT ENROUTE THERE IS NO CHANGE IN PT COMPLAINT OR PT STATUS AT THIS TIME. UPON ARRIVAL TO [facility] PT IS UNLOADED FROM UNIT AND TAKEN TO ED ROOM 3 WHERE VERBAL REPORT IS GIVEN TO RECIEVING RN AND PT CARE IS TRANSFERRED TO HOSPITAL STAFF. M528 BACK IN SERVICE. Initial Vitals @15:43P: 83,R: 18,BP: 126/73,Pain: 0/10,GCS: 15,CO: 4,SpO2: 95,Revised Trauma: 12, @15:39P: 87,R: 18,BP: 157/69,Pain: 0/10,GCS: 15,SpO2: 93,Revised Trauma: 12, Assessments @15:46MENTAL:No Abnormalities,SKIN:No Abnormalities,HEENT:Head/Face: No Abnormalities,Eyes: No Abnormalities,Neck/Airway: No Abnormalities,LUNG SOUNDS:General: No Abnormalities,Left Upper: No Abnormalities,Right Upper: No Abnormalities,Left Lower: No Abnormalities,Right Lower: No Abnormalities,ABDOMEN:General: No Abnormalities,Left Upper: No Abnormalities,Right Upper: No Abnormalities,Left Lower: No Abnormalities,Right Lower: No Abnormalities,PELVIS//GI:No Abnormalities,EXTREMITIES:Right Leg: Weakness,Left Leg: Weakness,Left Arm: No Abnormalities,Right Arm: No Abnormalities,PULSE:Radial: 2+ Normal,NEURO:No Abnormalities,@15:47MENTAL:No Abnormalities,SKIN:No Abnormalities,HEENT:Head/Face: No Abnormalities,Eyes: No Abnormalities,Neck/Airway: No Abnormalities,LUNG SOUNDS:General: No Abnormalities,Left Upper: No Abnormalities,Right Upper: No Abnormalities,Left Lower: No Abnormalities,Right Lower: No Abnormalities,ABDOMEN:General: No Abnormalities,Left Upper: No Abnormalities,Right Upper: No Abnormalities,Left Lower: No Abnormalities,Right Lower: No Abnormalities,PELVIS//GI:No Abnormalities,EXTREMITIES:Right Leg: Weakness,Left Leg: Weakness,Left Arm: No Abnormalities,Right Arm: No Abnormalities,PULSE:Radial: 2+ Normal,NEURO:No Abnormalities, Impression Generalized Weakness Procedures @15:45ALS AssessmentResponse: UnchangedSucceeded Timeline 15:22,Call Received 15:22,Dispatch Notified 15:24,Dispatched 15:25,En Route 15:33,On Scene 15:36,At Patient [address] [place] [address] EMS Patient Care Report Name: KOKI GOLDBERG Room #: DEP ILENE Wilhelm#: [id number] Admission: 02/08/21 Attend Phys: Discharge: 02/08/21 Date of : 37 Report #: [id number] 15:39,BP: 157/69 M,PULSE: 87,RR: 18 R,SPO2: 93 Ox,ETCO2: ,BG: ,PAIN: 0,GCS: 15, 15:42,Depart Scene 15:42,At Destination 15:43,BP: 126/73 M,PULSE: 83,RR: 18 R,SPO2: 95 Ox,ETCO2: ,BG: ,PAIN: 0,GCS: 15, 15:45,ALS Assessment,Response: UnchangedSucceeded, 15:51,Call Closed Disclaimer [email or web address] Copyright 2020 [email or web address] This EMS Care Summary contains data elements from the applicable legal record (which may be displayed differently). It is designed to provide pertinent information for the following purposes: continuity of care, clinical quality, and state data reporting. The complete legal record is available to ED staff and administrators of the receiving hospital in [facility]'s Patient Tracker. All data is provided "as is."
[2021-02-08 15:48] VITALS: BP 159/42
== END 2021-02-08 16:49 | disposition home or self-care (01) ==
LOC: ER 15:47
DX: M25.562 Pain in left knee (principal); M25.561 Pain in right knee; E11.9 Type 2 diabetes mellitus without complications; E78.5 Hyperlipidemia, unspecified; K21.9 Gastro-esophageal reflux disease without esophagitis; I12.9 Hypertensive chronic kidney disease with stage 1 through stage 4 chronic kidney disease, or unspecified chronic kidney disease; N18.9 Chronic kidney disease, unspecified; Z90.49 Acquired absence of other specified parts of digestive tract; Z90.12 Acquired absence of left breast and nipple; Z79.4 Long term (current) use of insulin; Z79.891 Long term (current) use of opiate analgesic; Z79.1 Long term (current) use of non-steroidal anti-inflammatories (NSAID); Z79.899 Other long term (current) drug therapy; Z88.5 Allergy status to narcotic agent; Z88.0 Allergy status to penicillin; Z88.2 Allergy status to sulfonamides; Z88.8 Allergy status to other drugs, medicaments and biological substances; Z91.041 Radiographic dye allergy status

== ENCOUNTER → 2021-08-08 | Outpatient (CLI) | payer OTHER, MEDICARE | LOC: HYPER 12:58 | PROVIDERS: ATTEND Emergency Medicine | DX: I89.0 Lymphedema, not elsewhere classified (principal); E11.628 Type 2 diabetes mellitus with other skin complications; L30.9 Dermatitis, unspecified; C50.919 Malignant neoplasm of unspecified site of unspecified female breast; I87.2 Venous insufficiency (chronic) (peripheral); E11.22 Type 2 diabetes mellitus with diabetic chronic kidney disease; I12.9 Hypertensive chronic kidney disease with stage 1 through stage 4 chronic kidney disease, or unspecified chronic kidney disease; N18.4 Chronic kidney disease, stage 4 (severe); M48.00 Spinal stenosis, site unspecified; M81.0 Age-related osteoporosis without current pathological fracture; M51.36 Other intervertebral disc degeneration, lumbar region; E11.319 Type 2 diabetes mellitus with unspecified diabetic retinopathy without macular edema; E66.01 Morbid (severe) obesity due to excess calories; F33.9 Major depressive disorder, recurrent, unspecified; Z68.43 Body mass index [BMI] 50.0-59.9, adult; Z79.4 Long term (current) use of insulin; Z79.899 Other long term (current) drug therapy ==